=== PATIENT | female | born 1955 ===

== ENCOUNTER 2020-09-01 15:33 | Outpatient (REF) | payer BC, SELFPAY ==
[2020-09-03 11:24] LABS: COVID-19 RT-PCR UVMMC Result Negative (Negative)
== END 2020-09-01 15:34 | disposition home or self-care (01) ==
LOC: NCHCN 15:33
PROVIDERS: Visit Provider Physician Assistant Medical
DX: Z13.9 Encounter for screening, unspecified (principal); Z20.822 Contact with and (suspected) exposure to COVID-19
CPT/HCPCS: U0003